=== PATIENT | female | born 1985 | race American Indian/Alaskan Native ===

== ENCOUNTER 2017-06-02 05:19 | Inpatient (IN) | payer MEDICAID ==
--- NOTE | 2017-05-30 14:14 | History and Physical Report ---
History of Present Illness Date of examination: 05/30/17 Chief complaint: scheduled section History of present illness: Pt is a 31 year old CYNDY 06/07/17 at 39w2d who presents for scheduled section secondary to previous x 2. She reports irregular contractions but denies vaginal bleeding or leakage of fluid. She has had care at [facility] since 10 wks complicated by obesity, genital herpes, low-lying placenta (resolved in Feb 2017) and limited anatomic survey with normal follow up scan. She has been comanaged by [facility] secondary to the aforementioned issues. She is GBS negative. Past History Past Medical History: other (obesity) Past Surgical History: cholecystectomy (2012), section (2021, 2011) FLOOR NURSE History: herpes Family/Genetic History: diabetes, hypertension Social history: no significant social history - Obstetrical History Expected Date of Delivery: 06/07/17 (+) Actual Gestation: 38 Week(s) 6 Day(s) : 5 Para: 3 Hx # Term Pregnancies: 3 Number of Pregnancies: 0 Spontaneous Abortions: 0 Induced : 1 Number of Living Children: 3 Review of Systems All systems: negative - Physical Exam Breasts: Positive: deferred Cardiovascular: Regular rate Lungs: Positive: Clear to auscultation Abdomen: Positive: soft (obese, gravid ) Uterus: Positive: enlarged (gravid ) Extremities: Positive: edema (trace) - Obstetrical FHR: auscultation normal Uterine Contraction Monitor Mode: External Uterine Contraction Pattern: Irregular Uterine Tone Measurement Phase: Resting Results All other labs normal. Assessment and Plan A: IUP at 39w2d Previous x 2 Obesity Genital herpes GBS negative status P: Proceed with repeat section and other indicated procedures.
[~2017-06-02 05:19] MED LIST: ANCEF/STERILE WATER 2 GM/20 ML 2 GM/20 ML SYRINGE IV NR; PEPCID IV NR; PITOCin/NS 20 UNIT/1000ML DRIP 20 UNITS/1,000 ML BAG IV SCH; REGLAN IV NR
[2017-06-02] MEDS: LACTATED RINGERS 1,000 ML IV SCH ×2 (05:30→07:15)
[2017-06-02 07:01] LABS: Basophils % (Auto) 0.1 % (0.0-1.8); Eosinophils # (Auto) 0.1 K/mm3 (0.0-0.4); Eosinophils % (Auto) 0.7 % (0.0-4.3); Hematocrit 34.6 % (30.3-42.9); Hemoglobin 11.4 gm/dl (10.1-14.3); Lymphocytes # (Auto) 1.4 K/mm3 (1.2-5.4); Lymphocytes % (Auto) 14.8 % (13.4-35.0); Mean Corpuscular HGB Conc 33 % (30-34); Mean Corpuscular Volume 79 fl (79-97); Monocytes # (Auto) 0.7 K/mm3 (0.0-0.8); Monocytes % (Auto) 7.3 % (0.0-7.3); Platelet Count 207 K/mm3 (140-440); Red Blood Count 4.39 M/mm3 (3.65-5.03); Red Cell Distribution Width 16.2 % (13.2-15.2)
[2017-06-02 07:07] LABS: Mean Corpuscular Hemoglobin 26 pg (28-32)
[2017-06-02] MEDS ORDERED: BICITRA PO NR (07:15)
--- NOTE | 2017-06-02 07:27 | Anesthesia Day of Surgery ---
Anesthesia Day of Surgery - Day of Surgery Patient Examined: Yes Patient H&P Reviewed: Yes Patient is NPO: Yes
--- NOTE | 2017-06-02 07:27 | Anesthesia Consultation ---
Anesthesia Consult and Med Hx Date of service: 06/02/17 - Airway Anesthetic Teeth Evaluation: Good ROM Head & Neck: Adequate Mental/Hyoid Distance: Adequate Mallampati Class: Class I Intubation Access Assessment: Good - Pulmonary Exam CTA: Yes - Cardiac Exam Cardiac Exam: RRR - Pre-Operative Health Status ASA Pre-Surgery Classification: ASA2 Proposed Anesthetic Plan: Epidural, Spinal - Pulmonary Hx Asthma: No COPD: No Hx Pneumonia: No - Cardiovascular System Hx Hypertension: No - Central Nervous System Hx Seizures: No Hx Psychiatric Problems: No - Endocrine Hx Renal Disease: No Hx End Stage Renal Disease: No Hx Hypothyroidism: No Hx Hyperthyroidism: No - Hematic Hx Anemia: No Hx Sickle Cell Disease: No - Other Systems Hx Alcohol Use: No Hx Obesity: Yes - Additional Comments Anesthesia Medical History Comments: repeat c section
[2017-06-02] MEDS ORDERED: PHENERGAN PR PRN (07:28)
[2017-06-02] MEDS ORDERED: PHENERGAN PO PRN (07:28)
[2017-06-02] MEDS ORDERED: NARCAN 0.4 MG/1 ML IV PRN ×2 (07:28→13:06)
[2017-06-02] MEDS ORDERED: ZOFRAN IV PRN ×2 (07:28→13:06)
[2017-06-02] MEDS ORDERED: SODIUM CHLORIDE FLUSH SYRINGE 10 ML IV NR ×2 (08:00→13:06)
[2017-06-02] MEDS ORDERED: fentaNYL-BUPIV 2 MCG/ML-0.125% 200 MCG/100 ML BAG EPIDURAL SCH (08:00)
[2017-06-02] MEDS ORDERED: ePHEDrine SULFATE ONE (08:28)
[2017-06-02] MEDS ORDERED: NACL 0.9% IR ONE (08:30)
[2017-06-02] MEDS ORDERED: WATER FOR IRRIG STERILE IR ONE (08:30)
[2017-06-02] MEDS ORDERED: ASTRAMORPH PF 10MG/10ML ONE (09:16)
[2017-06-02] MEDS ORDERED: ZOFRAN ONE (09:17)
[2017-06-02] MEDS ORDERED: NACL 0.9% 1000 ML 1,000 ML ONE (09:49)
--- NOTE | 2017-06-02 09:55 | Procedure Note ---
OB Delivery Note - Delivery Date of Delivery: 06/02/17 Surgeon: KATHERINE DOYLE Estimated blood loss: other (800 mL) - Section Preop diagnosis: repeat Postop diagnosis: same section procedure: section, repeat low transverse Disposition: PACU Complications: none Narrative: Please see operative note. - Infant A at 1 minute: 8 at 5 minutes: 9 Gender: Male (3303g (7lb 5oz) @ 0858 am)
--- NOTE | 2017-06-02 09:56 | Operative Report ---
Operative Report Operative Report: Date of procedure: June 02, 2017 Preoperative diagnosis: 1) IUP at 39w2d 2) Previous x 2 3) Morbid Obesity BMI 45 Postoperative diagnosis: Same 4) Intrabdominal Adhesions Procedure: 1) Repeat low transverse section 2) Lysis of Adhesions Surgeon: Pamela Watts M.D. Anesthesia: Spinal-Epidural Findings: 1) Viable male , Apgars 8 and 9, weight 3303g, (7 lb 5 oz) in cephalic presentation. Nuchal cord x 1 2) Normal-appearing uterus ovaries and tubes 3) Dense omental adhesions to the parietal peritoneum Estimated blood loss: 800mL IV fluids: 1700 mL Urine output: 200 mL, clear at the end of the procedure Drains: Kraft to gravity Specimens: None Complications: None. Counts correct x 3 Disposition: Stable to PACU Indication for procedure: Pt is a 31 year old female at 39w2d with a h/o two previous sections presents for repeat section. Operation in detail: After the risks, benefits, alternatives and complications were explained to the patient she gave informed consent for the procedure. She was subsequently taken to the operating room where spinal-epidural anesthesia was noted to be adequate. She was subsequently placed in the dorsal supine position with leftward tilt and prepped and draped in a normal sterile fashion. heart tones were noted to be in the 140s prior to incision. A timeout was performed. A Pfannenstiel skin incision was made with the knife and carried down to the layer of the fascia with the Bovie. The fascia was incised in the midline and the fascial incision was extended bilaterally with the Bovie. Attention was then turned to the superior aspect of the incision which was grasped with two Kochers, tented up, and dissected off the rectus muscles. Attention was then turned to the inferior aspect of the incision which was grasped with two Kochers , tented up and dissected off the rectus muscles. The rectus muscles were then in the midline and partially transected for adequate visualization. The peritoneum was then entered bluntly. Omental adhesions were then noted. Fifteen minutes were spent lysing these adhesions.The peritoneal incision was extended with good visualization of the bladder. The peritoneal incision was then stretched. An Nadeem self-retaining retractor was placed for visualization. The bladder blade was placed. The vesicouterine peritoneum was grasped with smooth pickups and incised with Metzenbaum scissors. Metzenbaum scissors were used to extend the incision bilaterally. The bladder flap was then created digitally and the bladder blade was replaced. A transverse incision was made in the lower uterine segment with a knife and extended bilaterally with the bandage scissors. The head was delivered without difficulty followed by shoulders and body. was bulb suctioned at delivery. The cord was clamped and cut and the was handed to NICU staff in attendance. Cord blood was collected. The placenta was then delivered manually. The uterus was then cleared of all clots and debris. The hysterotomy was then reapproximated with 0 Vicryl in a running locked fashion. A second layer of the same suture was used in imbricating fashion. The hysterotomy was inspected and hemostasis was noted. The Nadeem self-retaining retractor was removed. The gutters were irrigated and cleared of all clots and debris. The hysterotomy was again inspected and noted to be hemostatic. Surgicel was placed over the hysterotomy. The peritoneum was reapproximated with 2-0 Vicryl in a running fashion incorporating the rectus muscles. Surgicel was placed over the rectus muscles. The fascia was reapproximated with 0 Vicryl in a running fashion. The subcutaneous tissue was reapproximated with 3-0 Vicryl in running fashion. The skin was reapproximated with 4-0 Vicryl in a subcuticular fashion. The incision was then covered with steri strips and a pressure dressing. The procedure was then ended. The patient tolerated the procedure well and was taken to the PACU in stable condition. All instrument, lap, and needle counts were correct 3.
[2017-06-02] MEDS ORDERED: TORADOL IV PRN ×2 (10:29→13:06)
[2017-06-02] MEDS ORDERED: DILAUDID IV PRN ×3 (10:29→13:06)
[2017-06-02] MEDS ORDERED: MYLICON PO PRN (13:06)
[2017-06-02] MEDS ORDERED: ANCEF/NS 1 GM/50 ML 1 GM/50 ML BAG IV SCH (13:06)
[2017-06-02] MEDS ORDERED: MILK OF MAGNESIA PO PRN (13:06)
[2017-06-02] MEDS ORDERED: TUCKS PAD TP PRN (13:06)
[2017-06-02] MEDS ORDERED: TYLENOL PO PRN (13:06)
[2017-06-02] MEDS ORDERED: PITOCin/NS 20 UNIT/1000ML DRIP 20 UNITS/1,000 ML BAG IV SCH (13:06)
[2017-06-02] MEDS ORDERED: LANSINOH TP PRN (13:06)
[2017-06-02] MEDS ORDERED: TRANSDERM-SCOP TD SCH (14:00)
[2017-06-02] MEDS: D5LR 1,000 ML IV SCH (16:00)
[2017-06-02] MEDS: ceFAZolin 1 GM in NACL 0.9% 20 ML IV SCH (16:19)
[2017-06-02 23:55] LABS: Hematocrit 31.1 % (30.3-42.9); Hemoglobin 9.8 gm/dl (10.1-14.3)
[2017-06-03] MEDS: ceFAZolin 1 GM in NACL 0.9% 20 ML IV SCH (00:07)
[2017-06-03] MEDS: D5LR 1,000 ML IV SCH ×2 (00:07→07:24)
[2017-06-03] MEDS ORDERED: BOOSTRIX IM ONE (06:00)
[2017-06-03] MEDS ORDERED: M-M-R II VACCINE SUB-Q ONE (06:00)
[2017-06-03] MEDS: FEOSOL PO SCH (09:05)
[2017-06-03] MEDS: MOTRIN PO PRN (09:22)
--- NOTE | 2017-06-03 15:37 | Progress Note ---
Assessment and Plan A: POD#1 s/p repeat at term, Morbid Obesity, Asymptomatic anemia P: Routine postoperative care. Encourage ambulation. Bowel regimen. Subjective - Subjective Date of service: 06/03/17 Principal diagnosis: s/p repeat section Interval history: Pt without complaints. Patient reports: appetite normal, voiding normally, pain well controlled, ambulating normally, no flatus, no bowel movement, no nauseated : doing well Objective - Vital Signs Latest vital signs: Vital Signs Temp Pulse Resp BP BP Pulse Ox 06/03/17 08:05 99.1 F 81 20 118/81 96 06/03/17 01:10 98.3 F 71 18 98/48 96 06/02/17 21:35 98.2 F 77 18 99/45 94 06/02/17 16:10 98.3 F 88 20 112/59 93 Intake and Output 06/03/17 06/03/17 06/03/17 06:59 14:59 22:59 Intake Total 1000 1510.417 Output Total 300 Balance 700 1510.417 Intake: IV 1000 910.417 D5lr 1,000 ml @ 125 mls/ 1000 910.417 hr IV DIRECT CASSI Rx#: [id number] Oral 600 Output: Urine 300 Indwelling Catheter 300 Other: Total, Intake Amount 360 Total, Output Amount 300 # Voids Void 1 - Exam Breasts: Present: deferred Cardiovascular: Present: Regular rate Lungs: Present: Clear to auscultation Abdomen: Present: soft (obese ), distention (moderate ), abnormal bowel sounds ( hypoactive ) Uterus: Present: fundal height below umbilicus Extremities: Present: edema (trace) Incision: Present: dressed - Labs Labs: Abnormal lab results 06/02/17 Range/Units 23:35 Hgb 9.8 L (10.1-14.3) gm/dl
[2017-06-03] MEDS: PERCOCET 5/325 PO PRN (21:33)
[2017-06-03] MEDS: MILK OF MAGNESIA PO SCH (23:25)
[2017-06-04] MEDS: PERCOCET 5/325 PO PRN (08:19)
[2017-06-04] MEDS: MILK OF MAGNESIA PO SCH ×2 (11:39→17:06)
[2017-06-04] MEDS: MOTRIN PO PRN (14:45)
[2017-06-04] MEDS: FEOSOL PO SCH (14:45)
--- NOTE | 2017-06-04 15:35 | Progress Note ---
Assessment and Plan O: VSS AF PP H/H: 9.1/27.5 A: Stable PoD#2 Previous C/S x 2 P: Continue orders Subjective - Subjective Date of service: 06/04/17 Principal diagnosis: s/p repeat section Patient reports: pain well controlled, flatus, bowel movement, ambulating normally [place]: doing well Objective - Vital Signs Latest vital signs: Vital Signs Temp Pulse Resp BP Pulse Ox 06/04/17 09:12 98.6 F 101 H 18 121/64 06/04/17 00:35 98.4 F 76 18 111/52 98 06/03/17 22:33 18 06/03/17 21:33 20 06/03/17 17:29 80 119/48 06/03/17 16:43 98.9 F 75 20 103/37 96 Intake and Output 06/04/17 06/04/17 06/04/17 06:59 14:59 22:59 Intake Total 240 362 Balance 240 362 Intake: Oral 240 362 Other: Total, Intake Amount 240 240 # Voids Void 1 1 - Exam Breasts: Present: deferred Abdomen: Present: normal appearance, soft, distention Vulva: both: normal Uterus: Present: normal, firm, fundal height below umbilicus Extremities: Present: normal Incision: Present: normal, dry, intact, dressed
--- NOTE | 2017-06-04 15:39 | Discharge Summary ---
Providers - Providers Date of Admission: 06/02/17 05:19 Date of discharge: 06/05/17 Attending physician: KATHERINE DOYLE 06/02/17 13:06 Consult to Corporate Specialist [CONS] Routine Reason For Exam: Primary care physician: KATHERINE DOYLE Hospitalization Reason for admission: section Delivery: Procedure: repeat low transverse Episiotomy: none Laceration: none Incision: normal, dry, intact Other procedures: none complications: none Discharge diagnosis: IUP at term delivered [place] baby: male Condition at discharge: Good Disposition: DC-01 TO HOME OR SELFCARE Plan - Discharge Medications Prescriptions: Ferrous Sulfate [Feosol 325 MG tab] 325 mg PO BID #60 tablet Ibuprofen [Motrin] 800 mg PO Q8HR PRN #30 tablet PRN Reason: Pain oxyCODONE /ACETAMINOPHEN [Percocet 5/325] 1 tab PO Q6HR PRN #40 tablet PRN Reason: Pain - Provider Discharge Summary Activity: routine, no sex for 6 weeks, no heavy lifting 4 weeks, no strenuous exercise Diet: routine Additional instructions: [] Smoking cessation referral if applicable(refer to patient education folder for contact #) [] Refer to [facility]'s [facility] Booklet Call your doctor immediately for: * Fever > 100.5 * Heavy vaginal bleeding ( >1 pad per hour) * Severe persistent headache * Shortness of breath * Reddened, hot, painful area to leg or breast * Drainage or odor from incision. * Keep incision clean and dry at all times and follow doctor's instructions regarding bathing/showering - Follow up plan Follow up: KATHERINE DOYLE MD [Primary Care Provider] - 14 Days (RTO 2 weeks incision check)
[2017-06-05] MEDS: PERCOCET 5/325 PO PRN (07:03)
[2017-06-05 09:13] VITALS: BP 141/93
== END 2017-06-05 10:27 | disposition home or self-care (01) | DRG 765 ==
LOC: APU 05:19 → OB 11:55
PROVIDERS: ADMIT Obstetrics & Gynecology; ATTEND Obstetrics & Gynecology
PROC: 10D00Z1 Extraction of Products of Conception, Low, Open Approach (ICD-10-PCS; principal; 2017-06-02)
PROC: 3E0234Z Introduction of Serum, Toxoid and Vaccine into Muscle, Percutaneous Approach (ICD-10-PCS; 2017-06-03)
DX: O34.219 Maternal care for unspecified type scar from previous cesarean delivery (principal); Z68.42 Body mass index [BMI] 45.0-49.9, adult; O98.52 Other viral diseases complicating childbirth; O44.43 Low lying placenta NOS or without hemorrhage, third trimester; E66.01 Morbid (severe) obesity due to excess calories; Z3A.39 39 weeks gestation of pregnancy; O99.214 Obesity complicating childbirth; B00.9 Herpesviral infection, unspecified; O99.62 Diseases of the digestive system complicating childbirth; K66.0 Peritoneal adhesions (postprocedural) (postinfection); O69.81X0 Labor and delivery complicated by cord around neck, without compression, not applicable or unspecified; D64.9 Anemia, unspecified; Z23 Encounter for immunization; O90.81 Anemia of the puerperium
CPT/HCPCS: 36415; 85014; 85018; 85025; 86850; 86900; 86901; 99211; C1765; G0463; J0690; J1170; J1885; J2274; J2405; J2590; J2765; J7030; J7120; J7121; Q0169